=== PATIENT | male | born 1990 | race Two or more races ===

== ENCOUNTER 2016-12-07 18:17 | Emergency (ER) | payer SELFPAY ==
[~2016-12-07] VITALS: Ht 167.6 cm; Wt 95.3 kg
[2016-12-07] MEDS ORDERED: NKM (18:27)
[2016-12-07 18:36] VITALS: BP 131/68
--- NOTE | 2016-12-07 18:38 | Emergency Room Report ---
History of Present Illness General Chief Complaint: Chest Pain Source: Patient, Significant Other Present Illness HPI 26YOM [employer] walk-in patient with chest pain for 2.5 hours associated with sweating Worse with movement Radiates to left side of back No assoc nausea/vomiting, abd pain, headache, fever/chills Has had intermittent for 4 months Works as company laborer No CAD history No DVT family history Denies smoking, ETOH, drugs Allergies: Coded Allergies: No Known Allergies (Unverified , 12/07/16) Patient History Past Medical History: none Past Surgical History: none Pertinent Family History: none Social History: Denies: smoking, alcohol use, drug use Immunizations: UTD Reviewed Nursing Documentation: PMH: Agreed, PSxH: Agreed Nursing Documentation-PMH Past Medical History: No Stated History Review of Systems All Other Systems: negative except mentioned in HPI Physical Exam Vital Signs Date Time Temp Pulse Resp B/P (MAP) Pulse Ox O2 Delivery O2 Flow Rate FiO2 12/07/16 18:23 97.9 70 16 131/68 99 Room Air Sp02 EP Interpretation: reviewed, normal General Appearance: normal inspection, well appearing, no apparent distress, alert, GCS 15, non-toxic Head: normocephalic, atraumatic Eyes: bilateral eye PERRL, bilateral eye EOMI ENT: normal ENT inspection, hearing grossly normal, normal voice Neck: normal inspection, full range of motion, supple, no bony tend Respiratory: normal inspection, lungs clear, normal breath sounds, no respiratory distress, no retraction, no wheezing, other - ++Ttp to left side of chest, chest symmetrical Cardiovascular #1: regular rate, rhythm, no edema Gastrointestinal: normal inspection, normal bowel sounds, non tender, soft, no guarding, no hernia Genitourinary: no CVA tenderness Musculoskeletal: normal inspection, back normal, normal range of motion, Erika' s Sign negative Neurologic: normal inspection, alert, oriented x3, responsive, system configuration specialist III-XII nml as tested, motor strength/tone normal, speech normal Psychiatric: normal inspection, judgement/insight normal, mood/affect normal Skin: normal inspection, normal color, no rash Medical Decision Making Diagnostic Impression: Primary Impression: Chest pain Qualified Codes: R07.9 - Chest pain, unspecified ER Course VSS. Afebrile Not septic Pain likely MSK given reproducible, worse with movement, has had for ~4months Mild leuks, likely stress reaction Utox + for opiates. patient denies codeine, norco, other narcotics CXR negative for PTX Unlikely PE given no hypoxia, no tachycardia and MSK pain more likely ECG is NSR. No ischemia. Troponin 0. No CAD risk factors Improved with IV toradol DC home Does not have insurance. Is applying for [employer] insurance, emergency medical Will f/up with PMD when has insurance approved Patient and understand to return to ER for worsening pain. Rhythm Strip Diag. Results EP Interpretation: yes Rate: 64 Rhythm: NSR, no PVC's, no ectopy Last Vital Signs Date Time Temp Pulse Resp B/P (MAP) Pulse Ox O2 Delivery O2 Flow Rate FiO2 12/07/16 18:23 97.9 70 16 131/68 99 Room Air Status: improved Disposition: HOME, SELF-CARE LIV DIAZ M.D. Dec 07, 2016 18:38
[2016-12-07 18:51] LABS: EOSINOPHILS % (AUTO) 2.4 % (0.0-3.0); LYMPHOCYTES % (AUTO) 22.1 % (20.0-45.0); MEAN CORPUSCULAR HEMOGLOBIN 30.7 PG (27.0-31.0); MEAN CORPUSCULAR HGB CONC 34.3 G/DL (32.0-36.0); MEAN CORPUSCULAR VOLUME 90 FL (80-99); MEAN PLATELET VOLUME 7.4 FL (6.5-10.1); MONOCYTES % (AUTO) 6.4 % (1.0-10.0); NEUTROPHILS % (AUTO) 68.2 % (45.0-75.0); PLATELET COUNT 257 K/UL (150-450); RED CELL DISTRIBUTION WIDTH 12.1 % (11.6-14.8); WHITE BLOOD COUNT 11.9 K/UL (4.8-10.8)
[2016-12-07 19:13] LABS: ALANINE AMINOTRANSFERASE 25 U/L (3-41); ALBUMIN/GLOBULIN RATIO 1.5 (1.0-2.7); ANION GAP 17 (5-15); ASPARTATE AMINO TRANSFERASE 20 U/L (5-40); CALCIUM 9.8 mg/dL (8.6-10.2); CARBON DIOXIDE 22 mEQ/L (20-30); CHLORIDE 99 mEQ/L (98-107); CREATININE 0.6 mg/dL (0.7-1.2); GLOMERULAR FILTRATION RATE > 60 mL/min (>60); HEMOLYSIS 5; POTASSIUM 4.1 mEQ/L (3.4-4.9); SODIUM 138 mEQ/L (135-145); TOTAL PROTEIN 7.9 g/dL (6.6-8.7)
[2016-12-07 19:19] VITALS: BP 115/64
[2016-12-07 19:21] LABS: TROPONIN I < 0.30 ng/mL (<=0.30)
[2016-12-07 19:30] LABS: CKMB 3.3 ng/mL (< 6.7)
[2016-12-07] MEDS ORDERED: Ketorolac 30mg Inj IV ONE (19:30)
[2016-12-07] MEDS ORDERED: IBUPROFEN600 MG ORAL (19:59)
[2016-12-07 20:17] VITALS: BP 115/64
--- NOTE | 2016-12-08 11:09 | Diagnostic Imaging Report ---
Indication: Dyspnea Comparison: None A single view chest radiograph was obtained. Findings: Cardiomediastinal appearance is within normal limits for age. Pulmonary vascularity is appropriate. The diaphragmatic contour is smooth and costophrenic angles are sharp. No pleural effusions are identified. The bones are unremarkable. Impression: No acute findings
== END 2016-12-07 20:23 | disposition home or self-care (01) ==
LOC: EMR 19:47
DX: R07.9 Chest pain, unspecified (principal); M54.9 Dorsalgia, unspecified
CPT/HCPCS: 36415; 71010; 80053; 80300; 82550; 82553; 84484; 85025; 93005; 96374; 99284; J1885